=== PATIENT | male | born 1955 | race Caucasian/White ===

== ENCOUNTER 2024-10-10 00:22 | Day surgery (SDC) | payer MEDICARE, OTHER, SELFPAY ==
[2024-09-27 12:29] VITALS: BMI 24.4
--- NOTE | ~2024-10-10 | XR_ITS ---
EXAMINATION: XR_ENEMABAC_CR DATE: 10/10/2024 14:32 INDICATION: Encounter for screening for malignant neoplasm with incomplete colonoscopy TECHNIQUE: A cylinder grinder radiograph was obtained. A catheter was inserted into the patient's rectum. Contrast was infused by gravity. Gas was infused by hand pump. Fluoroscopic spot images and conventional radiographs were obtained. Fluoroscopy exposure time was 1.8 minutes. A total of 31 fluoroscopic images and 14 overhead radiographs were obtained. Total DAP was 91.995 Gycm^2. COMPARISON: None. FINDINGS: There are multiple diverticula along the sigmoid and descending colon. No evident stricture, polyps or other mucosal irregularities. IMPRESSION: 1. Mild to moderate diverticulosis along the descending and sigmoid colon. Reviewed, dictated and finalized at location A.
--- OUTSIDE RECORDS SUMMARY | 2024-10-10 00:29 | XMS_ITS | Clinical Summary ---
Author Organization [facility] Address [address] [place] [id number] Care Team Providers Care Competitive Intelligence Analyst Name Role Phone Shmuel Clemente MD Primary Care Provider [phone] Allergies Active Allergy Reactions Criticality Noted Date Comments Molds & Smuts Runny Nose,Sneezing 02/09/2021 Medications hydrochlorothia zide 12.5 MG capsule Take 1 capsule (12.5 mg total) by mouth every morning. 90 capsule 9 Active EPINEPHrine (EPIPEN) 0.3 MG/0.3ML injection ADMINISTER 0.3 MG IN THE MUSCLE 1 TIME 2 Active lisinopril (PRINIVIL) 20 MG tablet Take 20 mg by mouth daily. 2 Active lansoprazole (PREVACID) 30 MG capsule Take 30 mg by mouth daily. Active Active Problems Problem Noted Date Diagnosed Date Primary hypertension 10/30/2021 Family History Relation Status Comments Father Mother Social History Tobacco Use Types Packs/Day Years Used Date Smoking Tobacco: Every Day Cigarettes 1 25 Passive Smoke Exposure: Current Smokeless Tobacco: Never Tobacco Cessation:Ready to Q uit: No; Counseling Given: No Alcohol Use Standard Drinks/Week Comments Yes 0 (1 standard drink = 0.6 oz pur e alcohol) SOCIALLY AUDIT-C Answer Date Recorded Frequency of Alcohol Consumption Never 09/25/2018 Average Number of Drinks Not on file 019 Frequency of Binge Drinking Not on file 09/07 Sex and Gender Information Value Date Recorded Sex Assigned at Not on file Legal Sex Male 7:43 PM CDT Gender Identity Male 06/09/2021 9:29 AM CDT Sexual Orientation Straight 06/09/2021 9: 29 AM CDT Last Filed Vital Signs Vital Sign Reading Time Taken Comments Blood Pressure 129/84 03/17/2022 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 Pulse 84 03/17/2022 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 Temperature 36.2 C (97.1 F) 03/17/2022 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 Respiratory Rate 18 01/26/2021 11:12 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 Oxygen Saturation 93% 03/17/2022 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 Inhaled Oxygen Concentration - - Weight 83.9 kg (185 lb) 03/17/2022 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 Height 182.9 cm (6') 03/17/2022 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 Body Mass Index 25.09 03/17/2022 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 Plan of Treatment Health Maintenance Due Date Last Done Comments Colorectal Cancer Screening Colonoscopy (10 Years) 1953 Hepatitis C 1971 Pneumococcal Vaccine: 50+ Years (1 of 2 - PCV) 01/24/1972 Zoster Vaccines (1 of 2) 2003 Annual Medicare Wellness Visit 2018 COVID-19 Vaccine (3 - 2023-2 5 season) 2023 04/24/2020, 04/03/2020 PHQ-2 (Physician [place]) 02/08/2024 RSV Immunization or 60+ Years (1 - 1-dose 75+ series) 01/24/2028 DTaP, Tdap and Td Vaccines ( 2 - Td or Tdap) 09/30/2030 09/30/2020 Meningococcal B Vaccine Aged Out No l onger eligible based on patient's age to complete this topic Meningococcal Vaccine Aged Out No tam kayleigh eligible based on patient's age to complete this topic RSV Immunizations Under 20 Months Aged Out No longer eligible b ased on patient's age to complete this topic Insurance MEDICARE [employer] Care Teams Competitive Intelligence Analyst Relationship Specialty Start Date End Date Shmuel Clemente MD [address] [id number] [place] [phone] PCP - General FAMILY PRACTICE 01/26/21
[2024-10-10 08:53] VITALS: BP 148/87; PULSE 95; RESP 20; TEMP 36.1; O2SAT 97
[2024-10-10] MEDS: LACTATED RINGERS 1,000 ML 150 ML IV CONT (09:04)
--- NOTE | 2024-10-10 09:24 | WPDANESEPPF ---
Anes - Initial Pre Proc Eval Procedure: Operation Date: 10/10/24 10:00 Proposed Procedures p Screening Colonoscopy - Rohit Pate MD Date/Time: 10/10/24 09:24 Surgeon: Rohit Pate MD Pre Op Diagnosis: Screening Patient Data Age: 69 Gender: M Height: 1.8 m Weight: 82.9 kg Last Vital Signs Temp 36.1 C L 10/10/24 08:53 Pulse 95 10/10/24 08:53 Resp 20 10/10/24 08:53 BP 148/87 H 10/10/24 08:53 Pulse Ox 97 10/10/24 08:53 O2 Del Method Room Air 10/10/24 08:53 Allergies Allergy/AdvReac Type Severity Reaction Status Date / Time No Known Allergies Allergy Verified 10/10/24 08:48 Home Medications ?Medication ?Instructions ?Recorded ?Confirmed ?Type hydrochlorothiazide 12.5 mg tablet 12.5 mg PO DAILY 09/27/24 10/10/24 History lansoprazole 30 mg capsule,delayed 30 mg PO DAILY 09/27/24 10/10/24 History release lisinopril 20 mg tablet 20 mg PO DAILY 09/27/24 10/10/24 History Patient hx anesthesia problems: none Family hx anesthesia problems: none Results Review: All pre-operative results and documents have been reviewed as part of the pre-operative evaluation. [facility] Past Medical History Medical History (Updated 10/09/24 @ 13:58 by Wesley Bass DO) GERD (gastroesophageal reflux disease) Hyperlipidemia Hypertension Social History Social History Smoking packs per day: 1 Smoking cigarettes per day: 20.0 Smoking status: Current every day smoker Tobacco type: cigarettes Alcohol intake: current Drinks per week: 14 Alcohol use details: vodka Living arrangements: with family Spiritual care concerns: No Anes - Eval Final PreProcedure Day of Procedure 10/10/24 09:24 Patient weight: overweight Heart: regular rate and rhythm Lungs: clear to auscultation Airway: Mallampati scale class II Neurological: alert and oriented Last oral intake: >/= 8 hours ASA classification: III Emergent: no Anesthetic plan: proceed Anesthesia type and monitoring: general GIVS and standard monitoring Results Review: All pre-operative results and documents have been reviewed as part of the pre-operative evaluation. Informed Consent: The patient's anesthetic plan and its attendant risks and benefits were discussed with the patient/family/POA. Questions were solicited and answers provided to the satisfaction of the patient/family/POA.
--- NOTE | 2024-10-10 09:36 | PM.IMHP ---
H&P: HPI History of Present Illness Date/Time: 10/10/24 09:36 Chief Complaint: Screening colonoscopy Narrative: This is the patient's 2nd colonoscopy after 12 years.. There are no GI symptoms and there is no family history of colorectal cancer. Review of Systems Review of Systems: All systems reviewed & are unremarkable except as noted in HPI and below PMFSH Past Medical History Medical History (Updated 10/10/24 @ 09:37 by Rohit Pate MD) GERD (gastroesophageal reflux disease) Hyperlipidemia Hypertension Social History Social History Smoking packs per day: 1 Smoking cigarettes per day: 20.0 Smoking status: Current every day smoker Tobacco type: cigarettes Alcohol intake: current Drinks per week: 14 Alcohol use details: vodka Living arrangements: with family Spiritual care concerns: No Meds Home Medications and Allergies Home Medications ?Medication ?Instructions ?Recorded ?Confirmed ?Type hydrochlorothiazide 12.5 mg tablet 12.5 mg PO DAILY 09/27/24 10/10/24 History lansoprazole 30 mg capsule,delayed 30 mg PO DAILY 09/27/24 10/10/24 History release lisinopril 20 mg tablet 20 mg PO DAILY 09/27/24 10/10/24 History Allergies Allergy/AdvReac Type Severity Reaction Status Date / Time No Known Allergies Allergy Verified 10/10/24 08:48 Vital Signs Vital Signs - 24 hr 10/10/24 08:53 Temperature 97 F L Pulse Rate 95 Respiratory Rate 20 Blood Pressure 148/87 H Pulse Oximetry 97 Oxygen Delivery Room Air Exam Const: General: cooperative and healthy appearing Resp: Effort & Inspection: normal respiratory effort and able to speak in complete sentences Auscultation: clear to auscultation bilaterally Cardio: Rate: regular rate Rhythm: regular rhythm GI: Inspection: normal to inspection GI Palp: No No hepatosplenomegaly present Auscultation: normal bowel sounds Rectal Exam: deferred Skin: General skin exam: normal color Psych: Appearance: grossly normal Mental Status: mental status grossly normal Assessment and Plan Assessment and plan (1) Encounter for screening colonoscopy: Code(s): Z12.11 - Encounter for screening for malignant neoplasm of colon Status: Acute Assessment and Plan: The patient is deemed a good candidate for the procedure. Consent signed. Will proceed.
--- NOTE | 2024-10-10 09:58 | SUR.OPER ---
ddr soraida switched from colonscopy scope to egd scope due to pt anatomy.
[2024-10-10 10:09] VITALS: BP 126/79; PULSE 89; RESP 26; O2SAT 94
[2024-10-10 10:19] VITALS: BP 127/88; PULSE 85; RESP 21; O2SAT 94
[2024-10-10 10:29] VITALS: BP 154/93; PULSE 81; RESP 20; O2SAT 97
--- NOTE | 2024-10-10 10:49 | SUR.PHASEII ---
Air contrast barium enema ordered by Dr. Pate. First available appointment at 1330 today given to pt. Pt to stay NPO until appointment, pt and spouse state understanding.
== END 2024-10-10 10:50 | disposition home or self-care (01) ==
PROVIDERS: Visit Provider Internal Medicine Gastroenterology
PROC: 0DJD8ZZ Inspection of Lower Intestinal Tract, Via Natural or Artificial Opening Endoscopic (ICD-10-PCS; CPT 45378; principal; 2024-10-10 10:00)
DX: Z12.11 Encounter for screening for malignant neoplasm of colon (principal); K57.30 Diverticulosis of large intestine without perforation or abscess without bleeding; Z53.8 Procedure and treatment not carried out for other reasons; F17.210 Nicotine dependence, cigarettes, uncomplicated
CPT/HCPCS: G0121; 74280; J2003; J2704; J7120